=== PATIENT | female | born 1985 | race African-American/Black ===

== ENCOUNTER 2019-08-03 17:25 | Emergency (ER) | payer MEDICAID ==
[~2019-08-03] VITALS: Ht 170.2 cm; Wt 60.0 kg
[2019-08-03 19:35] LABS: BASOPHILS % 0.4 % (0.0-2.0); EOSINOPHILS % 0.6 % (0.0-5.0); HEMATOCRIT. 40.6 % (36.0-48.0); HEMOGLOBIN. 13.9 g/dL (12.0-16.0); LYMPHOCYTES % 20.6 % (20.0-50.0); MEAN CORPUSCULAR HEMOGLOBIN 33.9 pg (28.0-32.0); MEAN PLATELET VOLUME 8.1 fl (7.4-10.4); MONOCYTES % 6.6 % (2.0-8.0); NEUTROPHILS % 71.8 % (40.0-76.0); PLATELET 244 x1000/uL (130-400)
[2019-08-03 19:37] LABS: CHLORIDE 108 mEq/L (98-107)
[2019-08-03 19:41] LABS: ETHANOL BLOOD < 10 mg/dL
[2019-08-03] MEDS ORDERED: ACTIVATED CHARCOAL 50 G/240 ML TUBE PO ONE (20:30)
[2019-08-03 21:49] LABS: UCG SCREEN POSITIVE
[2019-08-03 21:54] LABS: *BARBITURATES SCREEN URINE NEGATIVE (NEGATIVE)
[2019-08-03 21:55] LABS: *BENZODIAZEPINES SCREEN URINE NEGATIVE (NEGATIVE); *COCAINE SCREEN URINE NEGATIVE (NEGATIVE); METHADONE URINE SCREEN NEGATIVE (NEGATIVE); OPIATES URINE SCREEN NEGATIVE (NEGATIVE); PHENCYCLIDINE URINE SCREEN NEGATIVE (NEGATIVE)
[2019-08-03 22:06] LABS: *AMPHETAMINES SCREEN URINE PRESUMTIVE POSITIVE (NEGATIVE); CANNABINOID URINE SCREEN PRESUMTIVE POSITIVE (NEGATIVE)
[2019-08-05 19:32] LABS: CLARITY URINE CLEAR (CLEAR); COLOR URINE YELLOW (YELLOW); KETONES URINE NEGATIVE (NEGATIVE); LEUKOCYTE ESTERASE URINE NEGATIVE (NEGATIVE); NITRITE URINE NEGATIVE (NEGATIVE); OCCULT BLOOD URINE NEGATIVE (NEGATIVE); PROTEIN URINE NEGATIVE (NEGATIVE); SPECIFIC GRAVITY URINE 1.025 (1.005-1.030)
[2019-08-06] MEDS ORDERED: DIPHENHYDRAMINE 25MG CAPSULE PO ONE (00:15)
[2019-08-06 12:10] VITALS: BP 125/62
== END 2019-08-06 13:04 | disposition home or self-care (01) ==
LOC: ER 17:25
DX: F32.9 Major depressive disorder, single episode, unspecified (principal); R45.851 Suicidal ideations; T43.591A Poisoning by other antipsychotics and neuroleptics, accidental (unintentional), initial encounter; Y92.89 Other specified places as the place of occurrence of the external cause; F41.9 Anxiety disorder, unspecified; F17.290 Nicotine dependence, other tobacco product, uncomplicated; F12.10 Cannabis abuse, uncomplicated
CPT/HCPCS: 36415; 76801; 76817; 80048; 80305; 80307; 80320; 80329; 81025; 84702; 85025; 99285; Q0163; G0480